=== PATIENT | male | born 1940 | race African-American/Black ===

== ENCOUNTER 2025-03-25 13:14 | Emergency (ER) | payer OTHER ==
[~2025-03-25] VITALS: Ht 172.7 cm; Wt 73.2 kg
[2025-03-25 13:37] VITALS: BP 110/63; PULSE 97; RESP 16; TEMP 97.6; O2SAT 97
--- NOTE | 2025-03-25 14:30 | DVH ---
CHEST RADIOGRAPH Indication: r/o fractures, pneumothroax. pna Technique: Single frontal view of the chest was obtained Comparison: None FINDINGS: Lines and Tubes: None Lungs: No focal consolidation. Pleura: No effusion. No pneumothorax. Cardiomediastinal contours: Unremarkable Bones: No acute osseous abnormality. IMPRESSION: 1. No acute cardiopulmonary disease.
[2025-03-25 14:32] LABS: Urine Protein, UAD Negative (Negative)
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
== END 2025-03-25 16:21 | disposition home or self-care (01) ==
LOC: ER 13:14
DX: S52.502A Unspecified fracture of the lower end of left radius, initial encounter for closed fracture (principal); Z79.899 Other long term (current) drug therapy; V89.2XXA Person injured in unspecified motor-vehicle accident, traffic, initial encounter; Y93.89 Activity, other specified; Y92.410 Unspecified street and highway as the place of occurrence of the external cause; Y99.8 Other external cause status
CPT/HCPCS: 71045; 73090; 81001